=== PATIENT | female | born 1995 | race Caucasian/White ===

== ENCOUNTER → 2020-04-06 | Outpatient (CLI) | payer OTHER ==
--- NOTE | 2020-04-06 22:49 | US ---
EXAMINATION TYPE: US transvaginal DATE OF EXAM: 04/06/2020 COMPARISON: NONE CLINICAL HISTORY: N94.6 Dysmenorrhea. Dysmenorrhea. G0. TECHNIQUE: Transvaginal (TV). Date of LMP: 02/23/2020 EXAM MEASUREMENTS: Uterus: 6.4 x 4.2 x 3.2 cm Endometrial Stripe: 0.7 cm Right Ovary: 3.4 x 2.5 x 2.7 cm Left Ovary: 4.0 x 2.8 x 2.9 cm 1. Uterus: Retroverted No abnormalities seen at this time. *There appears to be a heterogeneous area with vascularity midline adjacent to the uterus: 9.7 x 9.1 x 8.8 cm. 2. Endometrium: Measures 0.7 cm. 3. Right Ovary: Follicles seen. 4. Left Ovary: Measures slightly enlarged. Follicles seen. 5. Bilateral Adnexa: Appear wnl 6. Posterior cul-de-sac: Appears wnl IMPRESSION: There is a large solid mass in the midline pelvis with vascularity. Origin of this mass is not clear. This could be arising from ovary or uterus. Follow-up recommended.
== END | disposition home or self-care (01) ==
LOC: RADUSWWP 17:10
PROVIDERS: ATTEND Obstetrics & Gynecology
DX: R19.00 Intra-abdominal and pelvic swelling, mass and lump, unspecified site (principal); N94.6 Dysmenorrhea, unspecified
CPT/HCPCS: 76830

== ENCOUNTER → 2020-04-11 | Outpatient (CLI) | payer OTHER ==
--- NOTE | 2020-04-11 12:09 | CT ---
EXAMINATION TYPE: CT abdomen pelvis wo/w con DATE OF EXAM: 04/11/2020 COMPARISON: Pelvic ultrasound 04/06/2020 HISTORY: 25-year-old female abdominal mass, Abnormal US, Pelvic mass TECHNIQUE: Contiguous axial scanning of the abdomen and pelvis before and after administration of 100 ml Isovue 300 IV contrast. Delayed images through the kidneys and coronal/sagittal reconstructions performed. CT DLP: 576.7 mGycm Automated exposure control for dose reduction was used. FINDINGS: Heart normal size without pericardial effusion. Lung bases clear without pleural effusion. Nonspecific 8 mm hypodensity central right hepatic dome represent a small cyst or hemangioma. Some fo ryne fat along the anterior falciform ligament. Portal venous system is patent. No biliary ductal dila tation. Gallbladder, adrenal glands, kidneys, spleen, pancreas appear within normal limits. No dilated small bowel, free fluid, or free air. No mesenteric or retroperitoneal lymphadenopathy. Oral contrast progressed to the proximal sigmoid. No significant stool burden. No pericolonic inflamm atory change. Bladder partially distended. Uterus is anteverted and displaced anteriorly secondary to a large solid mass filling the cul-de-sac extending up to the L5-S1 level measuring 11.3 cm craniocaudal by 9.0 cm wide by 7.4 cm AP. Ovaries are visualized but were better characterized on patient's recent pelvic ultrasound. No abnorm al fluid collection in the pelvis or pelvic lymphadenopathy seen. Bones: No osseous destructive process. IMPRESSION: Large 11.3 x 9.0 x 7.4 cm solid mass filling the cul-de-sac. The ovaries were seen separate from the mass on the patient's recent pelvic ultrasound making an ovarian etiology unlikely. Consider a large exophytic uterine leiomyoma. Surgical evaluation should be considered.
== END | disposition home or self-care (01) ==
LOC: RADCTMAIN 08:50
PROVIDERS: ATTEND Obstetrics & Gynecology
DX: R19.00 Intra-abdominal and pelvic swelling, mass and lump, unspecified site (principal); R19.09 Other intra-abdominal and pelvic swelling, mass and lump
CPT/HCPCS: 74178; Q9967

== ENCOUNTER → 2020-04-17 | Outpatient (CLI) | payer OTHER ==
[2020-04-17 13:10] LABS: HCT 41.9 % (34.0-46.0); HGB 14.3 gm/dL (11.4-16.0); MCH 29.6 pg (25.0-35.0); MCHC 34.1 g/dL (31.0-37.0); MCV 86.7 fL (80.0-100.0); Mean Platelet Volume 7.1; Platelet Count 311 k/uL (150-450); RBC 4.83 m/uL (3.80-5.40); RDW 12.7 % (11.5-15.5)
[2020-04-17 17:53] LABS: ALT 12 U/L (8-44); AST 20 U/L (13-35); African American GFR (CKD) 148.9 (60.0-200.0); Alkaline Phosphatase 60 U/L (41-126); BUN/Creat Ratio 16.67 Ratio (12.00-20.00); Calcium 9.5 mg/dL (8.7-10.3); Carbon Dioxide 28.7 mmol/L (21.6-31.8); Chloride 106 mmol/L (96-109); Glucose 104 mg/dL (70-110); LDH 212 U/L (120-246); Non-African American GFR(CKD) 128.5 (60.0-200.0); Potassium 4.3 mmol/L (3.5-5.5); Sodium 138 mmol/L (135-145); Total Bilirubin 0.6 mg/dL (0.2-1.2); Total Protein 6.4 g/dL (6.2-8.2)
[2020-04-17 18:01] LABS: Estradiol 67.8 pg/mL; Follicle Stimulating Hormone 7.3 mIU/mL; Luteinizing Hormone 17.1 mIU/mL
[2020-04-17 18:47] LABS: Carcinoembryonic Antigen <0.5 ng/mL (0.0-4.9)
[2020-04-17 19:12] LABS: Cancer Antigen 125 15.6 U/mL (0.0-30.1)
[2020-04-17 19:20] LABS: HCG,Quantitative Serum <2.0 mIU/mL
[2020-04-20 18:00] LABS: Inhibin B 140 pg/mL
== END | disposition home or self-care (01) ==
LOC: LABWHC1 12:03
PROVIDERS: ATTEND Obstetrics & Gynecology
DX: R19.07 Generalized intra-abdominal and pelvic swelling, mass and lump (principal)
CPT/HCPCS: 36415; 80053; 82105; 82378; 82670; 83001; 83002; 83520; 83615; 84403; 84702; 85027; 86304; 86336

== ENCOUNTER 2020-06-09 22:14 | Emergency (ER) | payer OTHER ==
[2020-06-09 22:22] VITALS: RESP 18
[2020-06-09] MEDS ORDERED: SODIUM CHLORIDE 0.9% 1,000 ML IV STA (23:05)
[2020-06-09] MEDS ORDERED: ACETAMINOPHEN TAB 500 MG TAB PO STA (23:05)
[2020-06-09] MEDS ORDERED: ACETAMINOPHEN TAB 325 MG TAB PO STA (23:06)
--- NOTE | 2020-06-09 23:10 | ED ---
Fever HPI - General Chief Complaint: Fever Stated Complaint: Post Op Fever Time Seen by Provider: 06/09/20 22:25 Source: patient, family, RN notes reviewed, old records reviewed Mode of arrival: ambulatory Limitations: no limitations - History of Present Illness Initial Comments: This is a 25-year-old female presents today for postop evaluation, without fever patient fibroid surgery 4 days ago. Four-day hospital stay and developed fever tonight. She has admits to some dysuria no nausea vomiting no diarrhea no travel history or sick contacts. Patient was tested negative for coronavirus no abdominal pain sutures are healing well incision is healing well no rash, no nausea vomiting or diarrhea MD Complaint: fever, other (Dysuria) -: hour(s) Temperature Source: subjective Context: recent procedure (Recent surgery) Associated Symptoms: chills, abdominal pain, dysuria Treatments Prior to Arrival: none - Related Data Home Medications Medication Instructions Recorded Confirmed Acetaminophen Tab [Tylenol Tab] 1,000 mg PO Q6H PRN 06/09/20 06/09/20 Allergies Allergy/AdvReac Type Severity Reaction Status Date / Time No Known Allergies Allergy Verified 06/09/20 23:36 Review of Systems ROS Statement: Those systems with pertinent positive or pertinent negative responses have been documented in the HPI. ROS Other: All systems not noted in ROS Statement are negative. Past Medical History Additional Past Medical History / Comment(s): uteran fibroid History of Any Multi-Drug Resistant Organisms: None Reported Additional Past Surgical History / Comment(s): fibroid Past Psychological History: No Psychological Hx Reported Smoking Status: Never smoker Past Alcohol Use History: None Reported Past Drug Use History: None Reported General Exam Limitations: no limitations General appearance: alert, in no apparent distress Head exam: Present: atraumatic, normocephalic, normal inspection Eye exam: Present: normal appearance, PERRL, EOMI. Absent: scleral icterus, conjunctival injection, periorbital swelling ENT exam: Present: normal exam, mucous membranes moist Neck exam: Present: normal inspection. Absent: tenderness, meningismus, lymphadenopathy Respiratory exam: Present: normal lung sounds bilaterally. Absent: respiratory distress, wheezes, rales, rhonchi, stridor Cardiovascular Exam: Present: normal rhythm, tachycardia, normal heart sounds. Absent: systolic murmur, diastolic murmur, rubs, gallop, clicks GI/Abdominal exam: Present: soft, normal bowel sounds. Absent: distended, tenderness, guarding, rebound, rigid Extremities exam: Present: normal inspection, full ROM, normal capillary refill. Absent: tenderness, pedal edema, joint swelling, calf tenderness Back exam: Present: normal inspection Neurological exam: Present: alert, oriented X3, CN II-XII intact Psychiatric exam: Present: normal affect, normal mood Skin exam: Present: warm, dry, intact, normal color. Absent: rash Course Vital Signs 06/09/20 06/09/20 06/10/20 22:17 23:22 01:00 Temperature 99.0 F 99.2 F 98.8 F Pulse Rate 141 H Respiratory 18 Rate Blood Pressure 111/69 O2 Sat by Pulse 98 Oximetry - Reevaluation(s) Reevaluation #1: 06/10/20 00:02 Medical records reviewed Reevaluation #2: 06/10/20 01:29 Patient feels well here in the hospital, fevers controlled, patient states her heart rate always elevated Reevaluation #3: 06/10/20 01:29 Patient family informed of results, questions answered Medical Decision Making - Medical Decision Making 25 female DF for evaluation postop fever. No acute cause a fever found, no antibiotics will be prescribed at this time, patient returns symptoms worsen - Lab Data Result diagrams: 06/09/20 00:00 06/09/20 00:00 Lab Results 06/09/20 06/09/20 06/09/20 Range/Units 00:00 00:00 00:00 WBC 9.4 (3.8-10.6) k/uL RBC 4.01 (3.80-5.40) m/uL Hgb 11.7 (11.4-16.0) gm/dL Hct 34.9 (34.0-46.0) % MCV 87.0 (80.0-100.0) fL MCH 29.2 (25.0-35.0) pg MCHC 33.6 (31.0-37.0) g/dL RDW 13.9 (11.5-15.5) % Plt Count 459 H (150-450) k/uL Neutrophils % 68 % Lymphocytes % 24 % Monocytes % 5 % Eosinophils % 2 % Basophils % 0 % Neutrophils # 6.3 (1.3-7.7) k/uL Lymphocytes # 2.3 (1.0-4.8) k/uL Monocytes # 0.5 (0-1.0) k/uL Eosinophils # 0.2 (0-0.7) k/uL Basophils # 0.0 (0-0.2) k/uL Sodium 137 (137-145) mmol/L Potassium 4.2 (3.5-5.1) mmol/L Chloride 100 (98-107) mmol/L Carbon Dioxide 26 (22-30) mmol/L Anion Gap 11 mmol/L BUN 10 (7-17) mg/dL Creatinine 0.55 (0.52-1.04) mg/dL Est GFR (CKD-EPI)AfAm >90 (>60 ml/min/1.73 sqM) Est GFR (CKD-EPI)NonAf >90 (>60 ml/min/1.73 sqM) Glucose 111 H (74-99) mg/dL Plasma Lactic Acid Tomás (0.7-2.0) mmol/L Calcium 10.3 H (8.4-10.2) mg/dL Phosphorus 4.4 (2.5-4.5) mg/dL Magnesium 2.1 (1.6-2.3) mg/dL Total Bilirubin 1.1 (0.2-1.3) mg/dL AST 50 H (14-36) U/L ALT 41 H (4-34) U/L Alkaline Phosphatase 79 (38-126) U/L Total Protein 7.8 (6.3-8.2) g/dL Albumin 5.0 (3.5-5.0) g/dL Urine Color Yellow Urine Appearance Clear (Clear) Urine pH 7.5 (5.0-8.0) Ur Specific [place] 1.018 (1.001-1.035) Urine Protein Negative (Negative) Urine Glucose (UA) Negative (Negative) Urine Ketones Negative (Negative) Urine Blood Negative (Negative) Urine Nitrite Negative (Negative) Urine Bilirubin Negative (Negative) Urine Urobilinogen <2.0 (<2.0) mg/dL Ur Leukocyte Esterase Negative (Negative) Blood Type Blood Type Confirm Blood Type Recheck Bld Type Recheck Status Antibody Screen Spec Expiration Date 06/09/20 06/09/20 06/09/20 Range/Units 00:00 23:15 23:38 WBC (3.8-10.6) k/uL RBC (3.80-5.40) m/uL Hgb (11.4-16.0) gm/dL Hct (34.0-46.0) % MCV (80.0-100.0) fL MCH (25.0-35.0) pg MCHC (31.0-37.0) g/dL RDW (11.5-15.5) % Plt Count (150-450) k/uL Neutrophils % % Lymphocytes % % Monocytes % % Eosinophils % % Basophils % % Neutrophils # (1.3-7.7) k/uL Lymphocytes # (1.0-4.8) k/uL Monocytes # (0-1.0) k/uL Eosinophils # (0-0.7) k/uL Basophils # (0-0.2) k/uL Sodium (137-145) mmol/L Potassium (3.5-5.1) mmol/L Chloride (98-107) mmol/L Carbon Dioxide (22-30) mmol/L Anion Gap mmol/L BUN (7-17) mg/dL Creatinine (0.52-1.04) mg/dL Est GFR (CKD-EPI)AfAm (>60 ml/min/1.73 sqM) Est GFR (CKD-EPI)NonAf (>60 ml/min/1.73 sqM) Glucose (74-99) mg/dL Plasma Lactic Acid Tomás 1.0 (0.7-2.0) mmol/L Calcium (8.4-10.2) mg/dL Phosphorus (2.5-4.5) mg/dL Magnesium (1.6-2.3) mg/dL Total Bilirubin (0.2-1.3) mg/dL AST (14-36) U/L ALT (4-34) U/L Alkaline Phosphatase (38-126) U/L Total Protein (6.3-8.2) g/dL Albumin (3.5-5.0) g/dL Urine Color Urine Appearance (Clear) Urine pH (5.0-8.0) Ur Specific [place] (1.001-1.035) Urine Protein (Negative) Urine Glucose (UA) (Negative) Urine Ketones (Negative) Urine Blood (Negative) Urine Nitrite (Negative) Urine Bilirubin (Negative) Urine Urobilinogen (<2.0) mg/dL Ur Leukocyte Esterase (Negative) Blood Type O Positive Blood Type Confirm O Positive Blood Type Recheck No Previous Record Bld Type Recheck Status CABO Indicated Antibody Screen NEGATIVE Spec Expiration Date 06/12/2020 - 231 - Radiology Data Radiology results: report reviewed (X-ray abdominal series and chest, CT head and pelvis negative for acute disease), image reviewed Disposition Clinical Impression: Postoperative fever, FUO (fever of unknown origin) Disposition: HOME SELF-CARE Instructions (If sedation given, give patient instructions): Fever in Adults (ED) Is patient prescribed a controlled substance at d/c from ED?: No Referrals: None,Stated [Primary Care Provider] - 1-2 days
[2020-06-10 00:09] LABS: Basophils % (A) 0 %; Eosinophils # (A) 0.2 k/uL (0-0.7); Eosinophils % (A) 2 %; HCT 34.9 % (34.0-46.0); HGB 11.7 gm/dL (11.4-16.0); Lymphocytes # (A) 2.3 k/uL (1.0-4.8); Lymphocytes % (A) 24 %; MCH 29.2 pg (25.0-35.0); MCHC 33.6 g/dL (31.0-37.0); Mean Platelet Volume 6.9; Monocytes # (A) 0.5 k/uL (0-1.0); Monocytes % (A) 5 %; Neutrophils # (A) 6.3 k/uL (1.3-7.7); Neutrophils % (A) 68 %; Platelet Count 459 k/uL (150-450); RBC 4.01 m/uL (3.80-5.40); RDW 13.9 % (11.5-15.5); WBC 9.4 k/uL (3.8-10.6)
[2020-06-10 00:21] LABS: Appearance,Urine Clear (Clear); Bilirubin,Urine Negative (Negative); Blood,Urine Negative (Negative); Color,Urine Yellow; Glucose,Urine (UA) Negative (Negative); Ketones,Urine Negative (Negative); Leukocyte Esterase,Urine Negative (Negative); Nitrite,Urine Negative (Negative); PH, Urine 7.5 (5.0-8.0); Protein,Urine Negative (Negative); Specific Gravity,Urine 1.018 (1.001-1.035); Urobilinogen,Urine <2.0 mg/dL (<2.0)
[2020-06-10 00:27] LABS: ALT 41 U/L (4-34); AST 50 U/L (14-36); African American GFR (CKD) >90 (>60 ml/min/1.73 sqM); Alkaline Phosphatase 79 U/L (38-126); Anion Gap 11 mmol/L; Blood Urea Nitrogen 10 mg/dL (7-17); Calcium 10.3 mg/dL (8.4-10.2); Carbon Dioxide 26 mmol/L (22-30); Chloride 100 mmol/L (98-107); Glucose 111 mg/dL (74-99); Magnesium 2.1 mg/dL (1.6-2.3); Non-African American GFR(CKD) >90 (>60 ml/min/1.73 sqM); Phosphorus 4.4 mg/dL (2.5-4.5); Potassium 4.2 mmol/L (3.5-5.1); Sodium 137 mmol/L (137-145); Total Bilirubin 1.1 mg/dL (0.2-1.3); Total Protein 7.8 g/dL (6.3-8.2)
--- NOTE | 2020-06-10 00:38 | XR ---
EXAMINATION TYPE: XR abdomen acute w cxr DATE OF EXAM: 06/10/2020 COMPARISON: NONE HISTORY: Postop fever TECHNIQUE: 3 views FINDINGS: Heart is normal. Lungs are clear of consolidation. There are no hilar masses. Bowel gas pat tern is normal. There is no sign of intestinal obstruction or pneumoperitoneum. Fecal pattern is norm al. There is no evidence of a mass. There are no pathologic calcifications over the kidneys. Bony str uctures are intact. IMPRESSION: Normal chest. Nonacute abdomen.
[2020-06-10] MEDS ORDERED: IBUPROFEN 400 MG TAB PO STA (00:47)
[2020-06-10] MEDS ORDERED: SODIUM CHLORIDE 0.9% 1,000 ML IV STA ×2 (00:47)
--- NOTE | 2020-06-10 01:17 | CT ---
EXAMINATION TYPE: CT abdomen pelvis w con DATE OF EXAM: 06/10/2020 COMPARISON: 04/11/2020 HISTORY: pain CT DLP: 581.5 mGycm Automated exposure control for dose reduction was used. CONTRAST: Performed with IV Contrast, patient injected with 100 mL of Isovue 300. Lung bases are clear of infiltrate. There is small bilateral pleural effusions. There is no pericardi al effusion. Liver spleen stomach pancreas gallbladder appear intact. Bile ducts are not dilated. There is no adrenal mass. Kidneys show satisfactory contrast opacification. There is no hydronephrosi s. Delayed images show normal renal excretion. There is no retroperitoneal adenopathy. Bladder disten ds smoothly. Uterus is anteverted. There is some high attenuation in the posterior pelvis consistent with hemorrhage. This measures approximately 11 x 4.5 cm on the sagittal images. There is small amount of high attenuation fluid in the right paracolic gutter also consistent with he morrhage. There are small air bubbles in the peritoneal cavity consistent with recent surgery. There is no evidence of bowel obstruction. There is no mesenteric edema. There is no intestinal wall thicke zora. The lumbar spine is intact. Bony pelvis is intact. Appendix is not seen. There is no sign of th ickened appendix. IMPRESSION: High attenuation material in the posterior pelvis could be a large amount of blood clot in this patie nt with recent uterine surgery. There is been apparent resection of the large uterine posterior fibro id compared to old exam. There are new small bilateral pleural effusions compared to old exam.
[2020-06-10 01:42] VITALS: BP 100/65; PULSE 110; TEMP 98.6
== END 2020-06-10 01:43 | disposition home or self-care (01) ==
LOC: EC 22:14
DX: R50.82 Postprocedural fever (principal); R30.0 Dysuria; Z98.890 Other specified postprocedural states
CPT/HCPCS: 36415; 86900; 86901; 80053; 83605; 83735; 84100; 85025; 86850; 81003; 87040; 74022; 74177; 96360; 99284; Q9967